=== PATIENT | male | born 1995 | race Two or more races ===

== ENCOUNTER 2017-05-21 18:37 | Emergency (ER) | payer OTHER ==
--- NOTE | 2017-05-21 18:42 | ED.ADGEN ---
Adult General Chief Complaint Chief Complaint " A ball hit his lt hand on a line drive" Team PT HPI HPI Patient is a 21 year old male who presents with above hx and complaints left hand injury. Appears to have obvious boxer fx of 5th Lt. distal neurovascular intact. Has obvious swelling. No scissoring. No other injuries. Patient normally healthy. No other health issues. Patient is right-hand dominant. Review of Systems Review of Systems Constitutional: Denies fever or chills [] Eyes: Denies change in visual acuity, redness, or eye pain [] HENT: Denies nasal congestion or sore throat [] Respiratory: Denies cough or shortness of breath [] Cardiovascular: No additional information not addressed in HPI [] GI: Denies abdominal pain, nausea, vomiting, bloody stools or diarrhea [] : Denies dysuria or hematuria [] Musculoskeletal: Denies back pain or joint pain []except findings of left hand injury. Integument: Denies rash or skin lesions [] Neurologic: Denies headache, focal weakness or sensory changes [] Endocrine: Denies polyuria or polydipsia [] All other systems were reviewed and found to be within normal limits, except as documented in this note. Family History Family History Noncontributory Current Medications Current Medications Current Medications Medications (Trade) Dose Ordered Sig/Marva Start Time Stop Time Status Last Admin Dose Admin Oxycodone/ Acetaminophen (Percocet 10/325) 1 tab 1X ONCE 05/21/17 19:30 05/21/17 19:31 DC Allergies Allergies Allergies Coded Allergies Type Severity Reaction Last Updated Verified No Known Drug Allergies 05/21/17 No Physical Exam Physical Exam Constitutional: Well developed, well nourished, in acute distress, non-toxic appearance. [] HENT: Normocephalic, atraumatic, bilateral external ears normal, oropharynx moist, no oral exudates, nose normal. [] Eyes: PERRLA, EOMI, conjunctiva normal, no discharge. [] Neck: Normal range of motion, no tenderness, supple, no stridor. [] Cardiovascular:Heart rate regular rhythm, no murmur [] Lungs & Thorax: Bilateral breath sounds clear to auscultation [] Abdomen: Bowel sounds normal, soft, no tenderness, no masses, no pulsatile masses. [] Skin: Warm, dry, no erythema, no rash. [] Back: No tenderness, no CVA tenderness. [] Extremities: No tenderness, no cyanosis, no clubbing, ROM intact, no edema. [] Except findings and left hand Neurologic: Alert and oriented X 3, normal motor function, normal sensory function, no focal deficits noted. [] Psychologic: Affect anxious, judgement normal, mood depressed] Current Patient Data Vital Signs Vital Signs Date Time Temp Pulse Resp B/P (MAP) Pulse Ox O2 Delivery O2 Flow Rate FiO2 05/21/17 18:52 98.2 72 18 100 Room Air EKG EKG [] Radiology/Procedures Radiology/Procedures My interpretation has a boxer fracture left fifth[] Course & Med Decision Making Course & Med Decision Making Pertinent Labs and Imaging studies reviewed. (See chart for details). Ice, elevation, splint, and follow-up with orthopedics. Tylenol ibuprofen for pain. Distal neurovascular after application of splint. Return if any concerns. [] Final Impression Final Impression 1. Boxer fx[] lt. 5th Problems: Dragon Disclaimer Dragon Disclaimer This electronic medical record was generated, in whole or in part, using a voice recognition dictation system. BOGDAN CARRION MD May 21, 2017 18:42
[2017-05-21 18:52] VITALS: BP 133/68
[2017-05-21] MEDS ORDERED: oxyCODONE/APAP 10/325 1 TAB TABLET PO ONE (19:30)
--- NOTE | 2017-05-22 08:26 | RAD ---
Left hand, 3 views, 05/21/2017: History: Hand injury, pain and swelling There is a fracture of the midshaft of the fifth metacarpal with mild radial and volar displacement of the distal fracture fragment. No significant angulation is evident. No other fracture or dislocation is identified. There is moderate overlying soft tissue swelling. IMPRESSION: Acute left fifth metacarpal fracture.
== END 2017-05-21 19:41 | disposition home or self-care (01) ==
LOC: ER 18:37
DX: S62.327A Displaced fracture of shaft of fifth metacarpal bone, left hand, initial encounter for closed fracture (principal); W21.09XA Struck by other hit or thrown ball, initial encounter; Y93.89 Activity, other specified; Y99.8 Other external cause status; Y92.89 Other specified places as the place of occurrence of the external cause
CPT/HCPCS: 29125; 73130; 99284

== ENCOUNTER → 2020-07-15 | Outpatient (CLI) | payer OTHER ==
--- NOTE | 2020-07-15 09:19 | RAD ---
EXAM: Left tibia and fibula, 2 views. HISTORY: Fracture follow-up. COMPARISON: 06/08/2020 FINDINGS: Frontal and lateral views of the tibia and fibula are obtained. There is external casting m aterial which limits evaluation of bony detail. There has been slight interval healing of a minimally displaced comminuted distal tibial diaphyseal fracture, with associated slight surrounding callus fo rmation. There is also slight callus formation surrounding comminuted minimally displaced fractures i nvolving the mid-distal fibular diaphysis. IMPRESSION: Slight interval healing of tibial and fibular fractures, with evaluation slightly limited due to external casting material. Electronically signed by: Julieth Diaz MD (07/15/2020 9:17 AM) [id number]
== END ==
LOC: RAD 08:45
PROVIDERS: ATTEND Physician Assistant
DX: S82.92XA Unspecified fracture of left lower leg, initial encounter for closed fracture (principal); X58.XXXA Exposure to other specified factors, initial encounter; Y93.89 Activity, other specified; Y92.89 Other specified places as the place of occurrence of the external cause; Y99.8 Other external cause status
CPT/HCPCS: 73590

== ENCOUNTER → 2020-08-15 | Outpatient (CLI) | payer OTHER ==
--- NOTE | 2020-08-15 14:01 | RAD ---
EXAM: Left tibia-fibula, 2 views. HISTORY: Fracture follow-up. COMPARISON: 07/15/2020 FINDINGS: 2 views of the left tibia and fibula are obtained. There is slight callus formation surroun ding a nondisplaced comminuted distal tibial diaphyseal and segmental mid fibular diaphyseal fracture s. There has been no significant interval healing compared to the prior study. IMPRESSION: Slight callus formation surrounding tibial and fibular fractures, not appreciably changed compared to the prior exam. There is no complete bony bridging along the fracture lines. Electronically signed by: Julieth Diaz MD (08/15/2020 1:59 PM) [id number]
== END ==
LOC: RAD 13:29
PROVIDERS: ATTEND Physician Assistant
DX: S82.492A Other fracture of shaft of left fibula, initial encounter for closed fracture (principal); L84 Corns and callosities; X58.XXXA Exposure to other specified factors, initial encounter; Y93.89 Activity, other specified; Y92.89 Other specified places as the place of occurrence of the external cause; Y99.8 Other external cause status
CPT/HCPCS: 73590

== ENCOUNTER → 2020-11-25 | Outpatient (CLI) | payer OTHER ==
--- NOTE | 2020-11-25 17:19 | RAD ---
Exam Date: 11/25/2020 8:28 AM XR LT TIBIA + FIBULA Indication: Reason: HX OF FX, LEG PAIN / Spl. Instructions: / History: . COMPARISON: August 15, 2020 FINDINGS/ IMPRESSION: Distal tibial shaft fracture and comminuted mid fibular shaft fractures are again seen, similar in al ignment and position, but with increased callus formation consistent with interval partial healing. No interval new fractures are identified. Soft tissues are within normal limits. Electronically signed by: uLke Triana MD (11/25/2020 5:17 PM) [id number]
== END ==
LOC: RAD 08:06
PROVIDERS: ATTEND Physician Assistant
DX: S82.392A Other fracture of lower end of left tibia, initial encounter for closed fracture (principal); S82.492A Other fracture of shaft of left fibula, initial encounter for closed fracture; X58.XXXA Exposure to other specified factors, initial encounter; Y93.89 Activity, other specified; Y92.89 Other specified places as the place of occurrence of the external cause; Y99.8 Other external cause status
CPT/HCPCS: 73590

== ENCOUNTER → 2021-04-14 | Outpatient (CLI) | payer BC, OTHER ==
--- NOTE | 2021-04-14 15:13 | RAD ---
2 views of the tib-fib compared to similar exam dated November 252020 for follow-up. Findings and impression: Redemonstrated fracture of the distal diaphysis of the tibia, well aligned, with persiste nt subtle cortical lucency quite similar to the prior exam. There may be very subtle increase in call us formation from the prior exam. There are also 2 healing fractures of the mid fibular diaphysis, mi nimally angulated but otherwise well aligned, also perhaps with very subtle increasing callus formati on. Electronically signed by: Nahum Grier MD (04/14/2021 3:11 PM) [id number]
== END ==
LOC: RAD 11:37
PROVIDERS: ATTEND Physician Assistant
DX: S82.402D Unspecified fracture of shaft of left fibula, subsequent encounter for closed fracture with routine healing (principal); S82.302A Unspecified fracture of lower end of left tibia, initial encounter for closed fracture; X58.XXXA Exposure to other specified factors, initial encounter; Y93.89 Activity, other specified; Y92.89 Other specified places as the place of occurrence of the external cause; Y99.8 Other external cause status
CPT/HCPCS: 73590